=== PATIENT | male | born 1975 | race American Indian/Alaskan Native ===

== ENCOUNTER 2020-09-06 14:19 | Outpatient (CLI) | payer OTHER ==
--- NOTE | 2020-09-06 16:11 | Mammography Report ---
LEFT DIGITAL DIAGNOSTIC MAMMOGRAM WITH CAD WITH TOMOSYNTHESIS, 09/06/2020 LEFT LIMITED BREAST ULTRASOUND CLINICAL INFORMATION / INDICATION: Follow-up left breast mass TECHNIQUE: Digital left mammographic imaging was performed. Limited ultrasound was performed. This ex amination was interpreted with the benefit of Computer-Aided Detection (CAD) analysis. COMPARISON: Outside mammogram and ultrasound 12/22/2019, 05/19/2018 FINDINGS: Breast Density: There are scattered areas of fibroglandular density. MAMMOGRAPHIC FINDINGS: The dominant well-circumscribed oval mass in the left breast at 1-2:00, close to the nipple is stable in size and appearance measuring approximately 4 cm in greatest diameter. The re remains some nodular focal asymmetries in the upper outer left breast middle depth unchanged from prior mammogram. Overall the appearance of the left mammogram is unchanged compared with 05/19/2018. ULTRASOUND FINDINGS: Targeted ultrasound evaluation was performed of the area of interest. Sonograp hic evaluation of the left breast demonstrates stable appearance of oval solid mass with mildly lobul ated margins, measuring 3.7 x 1.5 cm, 1 cm from nipple. This is unchanged compared to 2019 ultrasound performed at outside facility. Smaller previously noted similar appearing masses in the 2-4 location in the left breast were not evaluated sonographically. IMPRESSION: Stable appearance of left mammogram. Dominant mass in the left anterior breast is stable, and most likely represents a fibroadenoma. Follow up recommendation: Routine yearly BI-RADS Category 2: Benign. A "normal" or negative report should not discourage follow up or biopsy of a clinically significant f inding. A written summary of these findings will be mailed to the patient. The patient will be entered into a mammography reporting system which will generate a reminder letter for the patient's next appointmen t at the appropriate interval. According to the [employer], yearly mammograms are recommended starting at age 40 and continuing as long as a woman is in good health. Breast MRI is recommended for women with an derrek roximately 20-25% or greater lifetime risk of breast cancer, including women with a strong family his tory of breast or ovarian cancer and women who have been treated for Hodgkin's disease. Signer Name: Erendira Mcnair MD Signed: 09/06/2020 4:06 PM Workstation Name: [id number]
== END 2020-09-06 14:20 | disposition home or self-care (01) ==
LOC: SPVWC 14:19
PROVIDERS: ATTEND Surgery
DX: N63.21 Unspecified lump in the left breast, upper outer quadrant (principal); R92.2 Inconclusive mammogram
CPT/HCPCS: 76642; 77065; G0279

== ENCOUNTER 2020-10-04 09:44 | Day surgery (SDC) | payer OTHER ==
[~2020-10-04 09:44] MED LIST: BUPIVACAINE/PF (0.25%) 2.5 MG/ML 30 ML VIAL INFILTRATI ONE; LIDOCAINE (1%) 10 MG/1 ML VIAL 20 ML MDV INFILTRATI ONE; TRIAMCINOLONE 40 MG/1 ML INJ IM ONE; VANCOMYCIN/NS 1 GM/250 ML 1 GM/250 ML BAG IV NR; WATER FOR IRRIG STERILE 1,500 ML BOTTLE IR ONE
[2020-10-04] MEDS ORDERED: fentaNYL 100 MCG/2 ML INJ ONE (09:49)
[2020-10-04] MEDS ORDERED: ONDANSETRON 4 MG/2 ML INJ ONE (09:49)
[2020-10-04] MEDS ORDERED: propofoL 200 MG/20 ML VIAL IV ONE (09:49)
[2020-10-04] MEDS ORDERED: dexAMETHasone 20 MG/5 ML VIAL ONE (09:49)
[2020-10-04] MEDS ORDERED: LIDOCAINE MPF (2%) 20 MG/1 ML VIAL 5 ML ONE (09:49)
[2020-10-04] MEDS ORDERED: LACTATED RINGERS 1,000 ML IV SCH (10:30)
--- NOTE | 2020-10-04 10:31 | Anesthesia Day of Surgery ---
Anesthesia Day of Surgery - Day of Surgery Patient Examined: Yes Patient H&P Reviewed: Yes Patient is NPO: Yes
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
[2020-10-04] MEDS ORDERED: ACETAMINOPHEN IV ONE (10:44)
[2020-10-04] MEDS ORDERED: MAGNESIUM OXIDE 400 MG TAB PO ONE (10:44)
[2020-10-04] MEDS ORDERED: HYDROmorphone 1 MG/1 ML INJ IV PRN (11:00)
[2020-10-04] MEDS ORDERED: VANCOMYCIN 1,500 MG in SODIUM CHLORIDE 0.9% 500 ML 500 ML IV SCH (11:00)
[2020-10-04] MEDS ORDERED: ACETAMINOPHEN 500 MG TAB PO SCH (11:00)
[2020-10-04] MEDS ORDERED: ONDANSETRON 4 MG/2 ML INJ IV PRN (11:00)
[2020-10-04] MEDS ORDERED: CELECOXIB 200 MG CAP PO NR (11:00)
[2020-10-04] MEDS ORDERED: MAGNESIUM OXIDE 400 MG TAB PO SCH (11:00)
[2020-10-04] MEDS ORDERED: MIDAZOLAM 2 MG/2 ML INJ ONE (11:02)
[2020-10-04] MEDS ORDERED: MIDAZOLAM 2 MG/2 ML INJ IV SCH (11:05)
[2020-10-04] MEDS ORDERED: ePHEDrine SULFATE 50 MG/1 ML INJ ONE ×2 (12:23→13:00)
[2020-10-04] MEDS ORDERED: LIDOCAINE (1%) 10 MG/1 ML VIAL 20 ML MDV ONE (12:28)
[2020-10-04] MEDS ORDERED: BUPIVACAINE/PF (0.25%) 2.5 MG/ML 30 ML VIAL INFILTRATI ONE ×2 (12:28→13:02)
[2020-10-04] MEDS ORDERED: TRIAMCINOLONE 40 MG/1 ML INJ ONE (12:29)
[2020-10-04] MEDS ORDERED: SODIUM CHLORIDE 0.9% IRR 1,500 ML BOTTLE IR ONE (13:00)
[2020-10-04] MEDS ORDERED: LIDOCAINE (1%) 10 MG/1 ML VIAL 20 ML MDV INFILTRATI ONE (13:02)
[2020-10-04] MEDS ORDERED: TRIAMCINOLONE 40 MG/1 ML INJ IM ONE (13:08)
--- NOTE | 2020-10-04 13:18 | Short Stay Summary ---
Short Stay Documentation Date of service: 10/04/20 - History H&P: obtained from office - Allergies and Medications Current Medications: Allergies Penicillins Adverse Reaction (Verified 09/22/20 17:13) Unknown Home Medications Medication Instructions Recorded Confirmed Last Taken Type Albuterol Mdi (or & Nicu Only) 1 puff IH PRN PRN 09/22/20 10/04/20 1 Week Ago History [ProAir HFA Inhaler] ~09/27/20 Cetirizine HCl [Cetirizine 5mg tab] 10 mg PO DAILY 09/22/20 09/22/20 10/03/20 History Famotidine [Pepcid] 40 mg PO DAILY 09/22/20 09/22/20 10/03/20 History Metoprolol [Lopressor TAB] 50 mg PO DAILY 09/22/20 09/22/20 10/03/20 History Potassium Chloride [K-Dur] 10 meq PO QDAY 09/22/20 09/22/20 10/03/20 History Triamter/Hctz 37.5-25 mg 1 tab PO QDAY 09/22/20 09/22/20 10/03/20 History [Maxzide-25] Active Medications Acetaminophen (Acetaminophen 500 Mg Tab) 1,000 mg PO ONCE CASSANDRA Stop: 10/04/20 19:00 Last Admin: 10/04/20 10:55 Dose: 1,000 mg Documented by: Celecoxib (Celecoxib 200 Mg Cap) 400 mg PO PREOP NR Stop: 10/04/20 19:00 Last Admin: 10/04/20 10:55 Dose: 400 mg Documented by: Hydromorphone HCl (Hydromorphone 1 Mg/1 Ml Inj) 0.25 mg IV Q10MIN PRN PRN Reason: Pain, Moderate (4-6) Stop: 10/04/20 19:00 Hydromorphone HCl (Hydromorphone 1 Mg/1 Ml Inj) 0.5 mg IV Q10MIN PRN PRN Reason: Pain , Severe (7-10) Stop: 10/04/20 19:00 Lactated Ringer's (Lactated Ringers) 1,000 mls @ 125 mls/hr IV DIRECT CASSANDRA Last Admin: 10/04/20 11:05 Dose: 125 mls/hr Documented by: Vancomycin HCl 1,500 mg/ (Sodium Chloride) 530 mls @ 333.333 mls/hr IV PREOP CASSANDRA Stop: 10/04/20 17:00 Last Admin: 10/04/20 11:18 Dose: 333.333 mls/hr Documented by: Magnesium Oxide (Magnesium Oxide 400 Mg Tab) 400 mg PO ONCE CASSANDRA Stop: 10/04/20 19:00 Last Admin: 10/04/20 10:55 Dose: 400 mg Documented by: Midazolam HCl (Midazolam 2 Mg/2 Ml Inj) 2 mg IV ONCE CASSANDRA Stop: 10/04/20 15:00 Last Admin: 10/04/20 11:06 Dose: 2 mg Documented by: Ondansetron HCl (Ondansetron 4 Mg/2 Ml Inj) 4 mg IV ONCE PRN PRN Reason: Nausea And Vomiting Stop: 10/04/20 20:00 - Brief post op/procedure progress note Date of procedure: 10/04/20 Pre-op diagnosis: Left breast mass upper outer quadrant Post-op diagnosis: same Procedure: Left breast mass excisional biopsy Anesthesia: GETA Findings: Left breast mass 2:00 position with excision performed Surgeon: CONRAD JARAMILLO Estimated blood loss: minimal Pathology: list Specimen disposition: to lab Condition: stable - Disposition Condition at discharge: Good Disposition: DC-01 TO HOME OR SELFCARE Short Stay Discharge Plan Activity: other (no heavy lifting) Diet: regular Wound: keep clean and dry (wear breast binder; may shower in 48 hours; no baths, pools or lakes) Follow up with: CONRAD JARAMILLO MD [Staff Physician] - 7 Days
--- NOTE | 2020-10-04 13:27 | Operative Report ---
Operative Report Operative Report: Operative Report: October 04, 2020 Preoperative diagnosis: Left breast mass of the upper outer quadrant Postoperative diagnosis: Same Procedure: Complex left breast mass excisional biopsy of upper outer quadrant Surgeon: Zehra Berrios MD Process Improvement Analyst: Edgar Morillo MD Anesthesia: General Findings: Left breast mass at 2:00 position 2-3 cm FN Complications: None EBL: Minimal (less than 25 cc) Disposition: PACU in good condition Indications for operative procedure: This is a 45 year old lady with left breast mass upper outer quadrant 2 o'clock position 2 cm from the nipple measuring at least 4 cm. Patient underwent prior ultrasound-guided core biopsy in 2019 with findings of a fibroadenoma. Recent diagnostic bilateral mammogram and breast ultrasound with stable findings. Given size recommendations were to proceed with an excisional biopsy. Patient wished to proceed with excision as well. She wished to proceed with the above procedure. Procedure in detail: Patient was then taken to the operating room. Gen. anesthesia was administered. The left breast and axilla were prepped and draped in the normal sterile operative fashion. Mass was palpable at the 2:00 position of the NAC. Ultrasound was used as well. A periareolar breast incision was made around the 2:00 position with a 15 blade knife and dissection taken down to subcutaneous tissues. First began raising of the superior flap with dissection taken down posteriorly past the palpable mass, followed by raising of the inferior flap, superior flap and lateral flap with all flaps taken down posteriorly past the palpable mass. The breast mass was removed posteriorly with the aid of the Bovie cautery. Specimen was marked and then sent to pathology and radiology. Breast cavity was irrigated and hemostasis was obtained. Ultrasound was used with no areas of concern seen. The breast cavity was anesthetized with 1% lidocaine mixed with quarter percent Marcaine. The posterior deep breast tissues were approximated and closed using interrupted 3-0 Vicryl. Kenalog was injected at the skin incision as well. Patient with prior keloid scar formation. The subcutaneous tissues were approximated and closed using interrupted 3-0 Vicryl followed by closing of the skin with a running 4-0 Monocryl and dermabond. The patient tolerated surgery very well and she was awaken from anesthesia without any complication and transported to PACU in good condition.
[2020-10-04] MEDS: HYDROmorphone 1 MG/1 ML INJ IV PRN ×2 (13:34→13:46)
[2020-10-04 14:48] VITALS: BP 122/61
--- NOTE | 2020-10-04 17:03 | Post Anesthesia Evaluation ---
- Post Anesthesia Evaluation Patient Participated: Yes Airway Patent: Yes Stable Respiratory Function: Yes Nausea/Vomiting: No Temp > 96.8F: Yes Pain Manageable: Yes Adequeate Hydration: Yes Anesthesia Complications: No Block Receding Appropriately: Not Applicable Patient on Ventilator: No
--- NOTE | 2020-10-17 12:43 | Mammography Report ---
BREAST SPECIMEN RADIOGRAPH HISTORY: Lumpectomy FINDINGS/IMPRESSION: The submitted radiograph or radiographs demonstrate(s) the presence of a dense mass. No biopsy clip o r localization wire is present. Please note laterality is not marked but presumably is from the left breast. Signer Name: Erendira Mcnair MD Signed: 10/17/2020 12:38 PM Workstation Name: [id number]
== END 2020-10-04 15:00 | disposition home or self-care (01) ==
LOC: EDSEX → MERGE 09:44 → OR 09:44
PROVIDERS: ATTEND Surgery
DX: N63.21 Unspecified lump in the left breast, upper outer quadrant (principal); D24.2 Benign neoplasm of left breast; I10 Essential (primary) hypertension; J45.909 Unspecified asthma, uncomplicated; K21.9 Gastro-esophageal reflux disease without esophagitis; E66.9 Obesity, unspecified; F41.9 Anxiety disorder, unspecified; Z88.0 Allergy status to penicillin; Z79.899 Other long term (current) drug therapy; Z87.01 Personal history of pneumonia (recurrent); Z72.89 Other problems related to lifestyle; Z98.890 Other specified postprocedural states; Z68.34 Body mass index [BMI] 34.0-34.9, adult; Z86.2 Personal history of diseases of the blood and blood-forming organs and certain disorders involving the immune mechanism
CPT/HCPCS: 19120; 76098; 88305; J0131; J1100; J1170; J2250; J2405; J2704; J3010; J3301; J3370; J7040; J7120; 88307